=== PATIENT | male | born 1980 | race Caucasian/White ===

== ENCOUNTER → 2020-01-08 10:54 | Outpatient (BNVA) | payer OTHER, SELFPAY | PROVIDERS: PCP Internal Medicine; Referring Provider Internal Medicine; Visit Provider Internal Medicine Endocrinology, Diabetes & Metabolism | DX: E11.65 Type 2 diabetes mellitus with hyperglycemia (principal); E11.319 Type 2 diabetes mellitus with unspecified diabetic retinopathy without macular edema; E11.42 Type 2 diabetes mellitus with diabetic polyneuropathy; Z79.4 Long term (current) use of insulin; E78.5 Hyperlipidemia, unspecified; I10 Essential (primary) hypertension; E66.9 Obesity, unspecified; Z68.30 Body mass index [BMI] 30.0-30.9, adult; E87.1 Hypo-osmolality and hyponatremia; F17.210 Nicotine dependence, cigarettes, uncomplicated; I25.10 Atherosclerotic heart disease of native coronary artery without angina pectoris; I73.9 Peripheral vascular disease, unspecified; I25.2 Old myocardial infarction; Z95.5 Presence of coronary angioplasty implant and graft; Z95.820 Peripheral vascular angioplasty status with implants and grafts | CPT/HCPCS: 82947; 95250; 99204; 99205 ==

== ENCOUNTER 2020-01-10 07:58 | Outpatient (REF) | payer OTHER, SELFPAY ==
[2020-01-10 09:01] LABS: Alanine Aminotransferase 11 U/L (0-40); Albumin Level 3.3 g/dL (3.5-5.0); Alkaline Phosphatase 190 U/L (39-117); Anion Gap 12 (12-20); Aspartate Amino Transferase 10 U/L (5-37); Bilirubin Total 0.5 mg/dL (0.0-1.0); Blood Urea Nitrogen 13 mg/dL (9-16); Calcium 8.6 mg/dL (8.4-10.2); Carbon Dioxide 29 mmol/L (22-29); Chloride 94 mmol/L (96-108); Cholesterol 138 mg/dL; Estimated Glomerular Filt Rate > 60; Glucose Fasting 347 mg/dL (60-99); HDL Cholesterol 40 mg/dL; LDL Cholesterol Calculated 82 mg/dl; Potassium 4.2 mmol/l (3.3-5.1); Sodium 131 mmol/L (135-145); Total Protein 7.2 g/dL (6.5-8.0); Triglycerides 83 mg/dL
[2020-01-10 09:10] LABS: Osmolality, Serum 289 mosm/kg (281-305)
[2020-01-10 09:21] LABS: Free T4 (Free Thyroxine) 1.29 ng/dL (0.71-1.85); Thyroid Stimulating Hormone 0.56 mIU/mL (0.32-4.0)
[2020-01-10 10:19] LABS: Creatinine Urine 28.54 mg/dL
[2020-01-10 10:37] LABS: Microalbum/Creatinine Ratio Ur 4313.2 ug/mg cr
[2020-01-11 08:01] LABS: LDL Cholesterol Direct 91 mg/dL (<100)
[2020-01-11 11:01] LABS: C Peptide 4.37 ng/mL (0.80-3.85)
[2020-01-13 21:15] LABS: Vitamin B12 429 pg/mL (200-900)
[2020-01-13 23:01] LABS: Adrenocorticotropic Hormone 23 pg/mL (6-50)
== END 2020-01-10 07:59 | disposition home or self-care (01) ==
LOC: HO.LAB 07:58
PROVIDERS: Visit Provider Internal Medicine Endocrinology, Diabetes & Metabolism
DX: E11.65 Type 2 diabetes mellitus with hyperglycemia (principal); E11.40 Type 2 diabetes mellitus with diabetic neuropathy, unspecified; E87.1 Hypo-osmolality and hyponatremia
CPT/HCPCS: 80053; 80061; 82024; 82043; 82533; 82607; 83721; 83930; 84439; 84443; 84681